=== PATIENT | male | born 1945 | race Caucasian/White ===

== ENCOUNTER 2016-11-15 10:09 | Day surgery (SDC) | payer MEDICARE, OTHER ==
[~2016-11-15 10:09] MED LIST: ASPIRIN EC325 MG PO; ASPIRIN ENTERI325 MG PO; ASPIRIN325 M3 PO; COUMADIN7.5 MG PO; FLOMAX0.4 M1 PO; IRON325 M1 PO; LISINOPRIL-HC PO; LOVENOX40 MG/0.4 SQ; METFORMIN HCL500 M2 PO; METFORMIN HCL500 PO; MOBIC15 M2 PO; NEURONTIN300 M1 PO; NORVASC5 M2 PO; OXYCONTIN10 M1 PO; PERCOCET 5-3251 EACH PO; PERCOCET 5/3251 TAB PO; POTASSIUM99 M2 PO; POTASSIUM99 M5 PO; PRINIVIL20 M1 PO; SENOKOT-S TABLE1 TAB PO; ULTRAM50 MG PO; VITAMIN B12
[2016-11-16 04:42] LABS: HCT-HEMATOCRIT 35.2 % (36.0-53.5); HGB-HEMOGLOBIN 11.2 gm/dl (13.5-17.0); IMMATURE GRANULOCYTES ABSOLUTE 0.04 tho/cmm (0-0.03); IMMATURE GRANULOCYTES PERCENT 0.3 % (0-0.3); LYMPH % 7.2 % (20-45); LYMPH ABSOLUTE COUNT 1.1 tho/cmm (0.8-4.5); MCH (MEAN CORPUSCULAR HGB) 28.2 pg (28.0-32.0); MCHC MEAN CORPUSCULAR HGB CONC 31.8 % (32.0-36.0); MCV (MEAN CELL VOLUME) 88.7 fl (82.0-96.0); MEAN PLATELET VOLUME 13.3 cmc (9.4-12.4); MONO % 8.3 % (0-12); MONOCYTE ABSOLUTE COUNT 1.3 tho/cmm (0.0-1.2); NEUTROPHIL ABSOLUTE COUNT 12.8 tho/cmm (1.6-8.0); NEUTROPHIL-AUTOMATED 12.8 tho/cmm (1.6-8.0); NEUTROPHILS % 84.2 % (40-80); PLATELET COUNT 159 tho/cmm (150-450); RED BLOOD COUNT 3.97 mil/cmm (4.40-5.70); RED CELL DISTRIBUTION WIDTH 13.1 % (12.4-16.4); WHITE BLOOD COUNT 15.1 tho/cmm (4.0-10.0)
[2016-11-16 05:02] LABS: ALB/GLOB RATIO 0.9 (0.8-2.0); ALBUMIN 3.2 g/dl (3.5-5.0); ALKALINE PHOSPHATASE 52 U/L (33-138); ALT/SGPT 52 U/L (12-78); ANION GAP 16 mmol/L (0-20); AST/SGOT 38 U/L (10-40); BILIRUBIN,TOTAL 0.4 mg/dl (0.0-1.5); BLOOD UREA NITROGEN 16 mg/dl (6-24); CALCIUM 8.2 mg/dl (8.5-10.5); CARBON DIOXIDE-VENOUS 25 mmol/L (22-32); CHLORIDE 98 mmol/l (96-110); CREATININE 1.17 mg/dl (0.60-1.30); GLUCOSE 240 mg/dL (70-110); POTASSIUM 3.9 mmol/L (3.7-5.1); SODIUM 135 mmol/L (135-145); eGFR VALUE FOR BLACK 71 mL/Min
[2016-11-16] MEDS ORDERED: PERCOCET 5-3251 EACH PO (13:48)
== END 2016-11-16 15:03 ==
LOC: SHSB 10:09 → ORE 13:33 → PACU 16:23 → 5EA 17:31
PROVIDERS: Internal Medicine
PROC: 01NB0ZZ Release Lumbar Nerve, Open Approach (ICD-10-PCS; principal; 2016-11-15)
DX: M48.06 Spinal stenosis, lumbar region (principal); M43.16 Spondylolisthesis, lumbar region; M21.372 Foot drop, left foot; I10 Essential (primary) hypertension; E66.9 Obesity, unspecified; M15.9 Polyosteoarthritis, unspecified; E11.9 Type 2 diabetes mellitus without complications; Z79.1 Long term (current) use of non-steroidal anti-inflammatories (NSAID); Z79.82 Long term (current) use of aspirin; Z79.84 Long term (current) use of oral hypoglycemic drugs; Z79.899 Other long term (current) drug therapy; Z87.891 Personal history of nicotine dependence; Z90.89 Acquired absence of other organs; Z98.890 Other specified postprocedural states
CPT/HCPCS: G8978-GP-CI; G8979-GP-CI; G8987-GO-CH; G8988-GO-CH; G8989-GO-CH; J0690; J1170; J1815; J3010; J3420; J7050